=== PATIENT | female | born 1930 | race Caucasian/White ===

== ENCOUNTER 2017-03-30 13:05 | Outpatient (CLI) | payer MEDICARE, BC ==
[2016-02-27 22:13] VITALS: O2SAT 92
== END 2017-03-30 13:06 | disposition home or self-care (01) | DRG 554 ==
LOC: CONVCARE 13:05
PROVIDERS: ATTEND Orthopaedic Surgery
DX: M19.012 Primary osteoarthritis, left shoulder (principal); M51.36 Other intervertebral disc degeneration, lumbar region
CPT/HCPCS: 72120; 73030

== ENCOUNTER 2017-12-21 11:32 | Day surgery (SDC) | payer MEDICARE, BC ==
[2017-12-21] MEDS ORDERED: BUPIVACAINE HCL 0.25% MPF 10 ML SOL INFIL ONE (12:14)
[2017-12-21] MEDS ORDERED: DEXAMETHASONE SOD PHOS PF 10 MG/ML SOL IJ ONE (12:14)
[2017-12-21 12:48] VITALS: BP 154/83; PULSE 60; RESP 18; TEMP 97.6; O2SAT 97
== END 2017-12-21 13:19 | disposition home or self-care (01) | DRG 552 ==
LOC: SURG 11:32
PROVIDERS: ATTEND Nurse Anesthetist, Certified Registered
DX: M48.062 Spinal stenosis, lumbar region with neurogenic claudication (principal)
CPT/HCPCS: J1100

== ENCOUNTER 2018-07-19 11:49 | Outpatient (CLI) | payer MEDICARE, BC ==
[2017-12-21 12:48] VITALS: O2SAT 97
== END 2018-07-19 11:50 | disposition home or self-care (01) | DRG 556 ==
LOC: CONVCARE 11:49
PROVIDERS: ATTEND Orthopaedic Surgery
DX: M25.511 Pain in right shoulder (principal)
CPT/HCPCS: 73030